=== PATIENT | female | born 1985 | race Caucasian/White ===

== ENCOUNTER 2019-08-24 09:41 | Emergency (ER) | payer BC, MEDICAID ==
--- NOTE | 2019-08-24 10:41 | EDM.PDOC ---
ED HPI GENERAL MEDICAL PROBLEM - General Chief Complaint: ENT Problem Stated Complaint: Ongoing left sided upper jaw dental pain and swelling 3 days states was seen in the emergency room Sunday started on by mouth penicillin states it is not improved at all Time Seen by Provider: 08/24/19 09:55 Source of Information: Reports: Patient, Family History Limitations: Reports: No Limitations - History of Present Illness INITIAL COMMENTS - FREE TEXT/NARRATIVE: Patient states that swelling has increased along with the pain to the left sided upper jaw she is able to eat and drink okay it is just painful. She denies any fever chills nausea vomiting headache vision changes or sinus pain no trouble with swallowing has been taking her penicillin every 6 hours as directed along with Tylenol but no relief. She is currently 6-1/2 weeks She states she was told by her mother that she is allergic to erythromycin as a child with questionable nausea vomiting diarrhea side effects no airway issues she is unsure if she is taking any other antibiotics since then and is class she thinks she may have taken Zithromax in the past but unsure. Duration: Day(s): Quality: Reports: Dull, Pressure, Throbbing Severity: Moderate Improves with: Reports: Medication Associated Symptoms: Reports: No Other Symptoms Treatments CARVER HAND: Reports: Acetaminophen Left Face/Facial Pain Score (Numeric/FACES): 8 - Related Data Allergies Allergy/AdvReac Type Severity Reaction Status Date / Time erythromycin base Allergy Cannot Verified 08/24/19 09:54 Remember Home Meds: Home Meds RX: Methyldopa 250 mg PO BID 08/24/19 [History] RX: Penicillin V Potassium 500 mg PO Q6HR 08/24/19 [History] Past Medical History - Past Health History Medical/Surgical History: Denies Medical/Surgical History (cdiff) Cardiovascular History: Reports: Hypertension [employer] History: Reports: Social & Family History - Tobacco Use Smoking Status *Q: Never Smoker ED ROS ENT - Review of Systems Review Of Systems: See Below Constitutional: Reports: No Symptoms. Denies: Fever, Chills, Malaise, Weakness , Fatigue HEENT: Reports: Dental Pain. Denies: Ear Discharge, Ear Pain, Eye Discharge, Eye Pain, Hearing Loss, Nosebleed, Nose Pain, Sinus Problem, Throat Pain, Throat Swelling, Vision Change Respiratory: Reports: No Symptoms Cardiovascular: Reports: No Symptoms Endocrine: Reports: No Symptoms GI/Abdominal: Reports: No Symptoms : Reports: No Symptoms Musculoskeletal: Reports: No Symptoms Skin: Reports: No Symptoms Neurological: Reports: No Symptoms Psychiatric: Reports: No Symptoms Hematologic/Lymphatic: Reports: No Symptoms Immunologic: Reports: No Symptoms ED EXAM, ENT - Physical Exam Exam: See Below Exam Limited By: No Limitations General Appearance: Alert, WD/WN, No Apparent Distress Eye Exam: Bilateral Eye: EOMI, PERRL Ears: Normal External Exam, Normal Canal, Hearing Grossly Normal, Normal TMs Nose: Normal Inspection, Normal Mucousa Mouth/Throat: Normal Inspection, Normal Gums, Normal Lips, Normal Oropharynx, Dental Pain (Noted questionable fracture/abscess to #14 with edema no noted fluctuance mild tenderness palpation over the area no tenderness palpation over the maxillary and ethmoid sinuses negative trismus or soft palate no tenderness palpation the tongue is soft no signs of ludwigs ). No: Normal Teeth Head: Atraumatic, Normocephalic Neck: Supple, Non-Tender, Full Range of Motion. No: Limited Range of Motion, Lymphadenopathy (L) Respiratory/Chest: No Respiratory Distress, Lungs Clear, Normal Breath Sounds, No Accessory Muscle Use Cardiovascular: Normal Peripheral Pulses Neurological: Alert, Oriented, CN II-XII Intact, Normal Cognition, Normal Gait Psychiatric: Normal Affect, Normal Mood Skin: Warm, Dry, Intact, Normal Color Lymphatic: No Adenopathy Course - Vital Signs Text/Narrative:: Up to date No reports linking clindamycin with congenital defects have been published to date, and animal studies have failed to demonstrate risk with clindamycin therapy. However, a lack of controlled studies in women warrants a [place] Food and Drug Administration (FDA) risk category of B (table 2). Clindamycin does cross the placenta with levels approximating 50 percent of maternal serum levels. We will give the patient a dose of clindamycin here by mouth weight and observation if no reaction she will be given a prescription and told follow up with her dentist in the next 24-48 hours return to the emergency room if anything changes patient was educated on the possible side effects clindamycin but it is class B she is okay with course and treatment Last Recorded V/S: Last Vital Signs Temp 36.6 C 08/24/19 09:45 Pulse 108 H 08/24/19 09:45 Resp 16 08/24/19 09:45 BP 139/89 08/24/19 10:00 Pulse Ox 97 08/24/19 09:45 - Orders/Labs/Meds Meds: Medications Discontinued Medications Generic Name Dose Route Start Last Admin Trade Name Philippe PRN Reason Stop Dose Admin Clindamycin HCl 3 packet 08/24/19 10:49 08/24/19 10:57 Take Home: Clindamycin Hcl 150 Mg, 6 Cap Pack PO 08/24/19 10:50 1 packet ONETIME ONE Administration Departure - Departure Time of Disposition: 11:35 Disposition: Home, Self-Care 01 Condition: Good Clinical Impression: Dental abscess - Discharge Information *PRESCRIPTION DRUG MONITORING PROGRAM REVIEWED*: No *COPY OF PRESCRIPTION DRUG MONITORING REPORT IN PATIENT [place]: No Instructions: Dental Abscess, [id number] Referrals: Maria Del Carmen Akins PA-C [Primary Care Provider] - Forms: ED Department Discharge Additional Instructions: Take your antibiotic clindamycin 300 mg every 12 hours see her dentist in the next 24-48 hours he may continue to take Tylenol 500 mg every 4-6 hours as needed continue to wash after mouth with warm salt water gargle and spit every 2 -3 hours. Return to the emergency room if anything gets worse or changes Follow-up with her primary care doctor in the next 24-48 hours in regards to her or an [employer] doctor - Problem List & Annotations (1) Dental abscess SNOMED Code(s): 274327396 Code(s): K04.7 - PERIAPICAL ABSCESS WITHOUT SINUS Status: Acute
[2019-08-24] MEDS ORDERED: Take Home: Clindamycin HCl 150 MG Cap, 6 Cap Pack PO ONE (10:49)
== END 2019-08-24 11:35 | disposition home or self-care (01) ==
LOC: VM.ED 09:41
DX: O99.611 Diseases of the digestive system complicating pregnancy, first trimester (principal); K04.7 Periapical abscess without sinus; O10.011 Pre-existing essential hypertension complicating pregnancy, first trimester; Z3A.01 Less than 8 weeks gestation of pregnancy; Z88.1 Allergy status to other antibiotic agents
CPT/HCPCS: 99283; A9270